=== PATIENT | male | born 1990 | race Caucasian/White ===

== ENCOUNTER 2022-05-24 08:33 | Inpatient (IN) | payer BC ==
[2022-05-24 09:16] LABS: #Basophils 0.1 thou/uL (0.0-0.2); #Eosinphils 0.3 thou/uL (0.0-0.7); #Monocytes 0.6 thou/uL (0.11-0.59); #Neutrophils 5.5 thou/uL (1.40-6.50); %Basophils 0.8 % (0.0-1.0); %Eosinophils 3.7 % (0.0-10.0); %Monocytes 6.9 % (0.0-10.0); %Neutrophils 64.7 % (42.0-75.0); Hemoglobin 14.7 g/dL (14.0-18.0); Mean Corpuscular HGB CONC 34.6 g/dL (32.0-36.0); Mean Corpuscular Hemoglobin 30.2 pg (27.0-31.0); Mean Corpuscular Volume 87.1 fl (78.0-98.0); Mean Platelet Volume 8.2 fL (7.4-10.4); Platelet Count 182 10x3/uL (130-400); RBC Distribution Width 12.2 % (11.5-14.5); Red Blood Cell (RBC) Count 4.86 mill/uL (4.70-6.10); White Blood Cell (WBC) Count 8.4 10x3/uL (4.8-10.8)
[2022-05-24 09:38] LABS: ALT (SGPT) 41 U/L (8-55); AST (SGOT) 25 U/L (5-34); Albumin 4.3 g/dL (3.5-5.0); Alkaline Phosphatase 50 U/L (40-110); Anion Gap 8 mmol/L (10-20); BUN (Urea Nitrogen) 33 mg/dL (8.9-20.6); Bilirubin, Total 0.9 mg/dL (0.2-1.2); Calc. Creatinine Clearance 0 mL/min (70-130); Carbon Dioxide 32 mmol/L (22-29); Chloride 105 mmol/L (98-107); Estimated GFR 34; Globulin 2.7 g/dL (2.4-3.5); Glucose 104 mg/dL (70-105); Potassium 3.6 mmol/L (3.5-5.1); Sodium 141 mmol/L (136-145)
[2022-05-24 09:44] LABS: Calcium 15.3 mg/dL (7.8-10.44)
[2022-05-24 10:01] LABS: Phosphorus 2.1 mg/dL (2.3-4.7)
[2022-05-24] MEDS ORDERED: Labetalol HCl 100 MG/20 ML VIAL ONE (10:28)
[2022-05-24 11:47] LABS: CKMB 1.7 ng/mL (0-6.6)
[2022-05-24] MEDS ORDERED: Labetalol HCl 100 MG/20 ML VIAL SLOW IVP PRN (12:03)
[2022-05-24] MEDS ORDERED: hydrALAZINE 20 MG/ML VIAL ONE (17:58)
[2022-05-24] MEDS ORDERED: hydrALAZINE 20 MG/ML VIAL SLOW IVP SCH (18:00)
[2022-05-24] MEDS: Sodium Chloride 0.9% 1,000 ML IV SCH ×2 (18:07→22:22)
[2022-05-24 18:46] LABS: Anion Gap 12 mmol/L (10-20); BUN (Urea Nitrogen) 30 mg/dL (8.9-20.6); Calc. Creatinine Clearance 0 mL/min (70-130); Carbon Dioxide 25 mmol/L (22-29); Chloride 104 mmol/L (98-107); Estimated GFR 37; Glucose 135 mg/dL (70-105); Potassium 3.2 mmol/L (3.5-5.1); Sodium 138 mmol/L (136-145)
[2022-05-24 19:09] LABS: CKMB 1.6 ng/mL (0-6.6)
[2022-05-24 19:12] VITALS: BMI 31.8
[2022-05-24 23:01] LABS: Albumin 3.9 g/dL (3.5-5.0); Anion Gap 15 mmol/L (10-20); BUN (Urea Nitrogen) 31 mg/dL (8.9-20.6); BUN/Creatinine Ratio 13.14; Calc. Creatinine Clearance 62 mL/min (70-130); Calcium 15.2 mg/dL (7.8-10.44); Carbon Dioxide 23 mmol/L (22-29); Chloride 106 mmol/L (98-107); Estimated GFR 36; Glucose 133 mg/dL (70-105); Phosphorus 3.5 mg/dL (2.3-4.7); Potassium 3.3 mmol/L (3.5-5.1); Sodium 141 mmol/L (136-145)
[2022-05-25] MEDS: Acetaminophen 325 MG TAB PO PRN ×5 (00:19→18:31)
[2022-05-25] MEDS: Sodium Chloride 0.9% 1,000 ML IV SCH ×3 (03:52→18:35)
[2022-05-25 05:54] LABS: #Eosinphils 0.3 thou/uL (0.0-0.7); #Lymphocytes 2.3 thou/uL (1.20-3.40); #Monocytes 0.6 thou/uL (0.11-0.59); %Basophils 0.5 % (0.0-1.0); %Eosinophils 3.9 % (0.0-10.0); %Lymphocytes 27.6 % (21.0-51.0); %Monocytes 7.3 % (0.0-10.0); %Neutrophils 60.6 % (42.0-75.0); Hemoglobin 12.9 g/dL (14.0-18.0); Mean Corpuscular HGB CONC 34.1 g/dL (32.0-36.0); Mean Corpuscular Hemoglobin 30.1 pg (27.0-31.0); Mean Corpuscular Volume 88.2 fl (78.0-98.0); Mean Platelet Volume 8.5 fL (7.4-10.4); Platelet Count 176 10x3/uL (130-400); RBC Distribution Width 12.3 % (11.5-14.5); Red Blood Cell (RBC) Count 4.28 mill/uL (4.70-6.10); White Blood Cell (WBC) Count 8.3 10x3/uL (4.8-10.8)
[2022-05-25 06:23] LABS: Anion Gap 11 mmol/L (10-20); BUN (Urea Nitrogen) 25 mg/dL (8.9-20.6); Calc. Creatinine Clearance 71 mL/min (70-130); Carbon Dioxide 25 mmol/L (22-29); Chloride 109 mmol/L (98-107); Estimated GFR 43; Glucose 88 mg/dL (70-105); Potassium 3.2 mmol/L (3.5-5.1); Sodium 142 mmol/L (136-145)
[2022-05-25 06:27] LABS: Calcium 13.6 mg/dL (7.8-10.44)
[2022-05-25 08:41] LABS: Magnesium 1.8 mg/dL (1.6-2.6)
[2022-05-25] MEDS ORDERED: Potassium Chloride 20 MEQ TAB PO SCH (08:45)
[2022-05-25] MEDS: hydrALAZINE 25 MG TAB PO SCH ×3 (08:52→21:22)
[2022-05-25] MEDS ORDERED: Zoledronic Acid 4 MG in Sodium Chloride 0.9% 100 ML IVPB SCH (12:45)
[2022-05-25] MEDS ORDERED: hydrALAZINE 25 MG TAB PO SCH (16:00)
[2022-05-26] MEDS: Sodium Chloride 0.9% 1,000 ML IV SCH ×4 (02:20→23:41)
[2022-05-26] MEDS: Acetaminophen 325 MG TAB PO PRN ×5 (05:07→23:41)
[2022-05-26 06:01] LABS: Anion Gap 9 mmol/L (10-20); BUN (Urea Nitrogen) 21 mg/dL (8.9-20.6); Calc. Creatinine Clearance 74 mL/min (70-130); Calcium 12.1 mg/dL (7.8-10.44); Carbon Dioxide 23 mmol/L (22-29); Chloride 113 mmol/L (98-107); Estimated GFR 45; Glucose 85 mg/dL (70-105); Potassium 3.5 mmol/L (3.5-5.1); Sodium 141 mmol/L (136-145)
[2022-05-26] MEDS: NIFEdipine XL 60 MG TAB PO SCH (09:00)
[2022-05-26] MEDS ORDERED: NIFEdipine XL 30 MG TAB PO SCH (09:00)
[2022-05-26] MEDS: hydrALAZINE 25 MG TAB PO SCH ×4 (09:01→21:11)
[2022-05-26] MEDS ORDERED: Metoprolol Tartrate 5 MG/5 ML VIAL IVP PRN (13:35)
[2022-05-26] MEDS ORDERED: Metoprolol Tartrate 25 MG TAB PO SCH (13:45)
[2022-05-26] MEDS ORDERED: Furosemide 40 MG/4 ML VIAL SLOW IVP SCH (14:45)
[2022-05-26] MEDS ORDERED: hydrALAZINE 25 MG TAB PO SCH (15:45)
[2022-05-26] MEDS: Metoprolol Tartrate 25 MG TAB PO SCH (21:14)
[2022-05-27 05:51] LABS: Anion Gap 10 mmol/L (10-20); BUN (Urea Nitrogen) 18 mg/dL (8.9-20.6); Calc. Creatinine Clearance 79 mL/min (70-130); Calcium 10.8 mg/dL (7.8-10.44); Carbon Dioxide 23 mmol/L (22-29); Chloride 110 mmol/L (98-107); Estimated GFR 49; Glucose 85 mg/dL (70-105); Potassium 3.2 mmol/L (3.5-5.1); Sodium 140 mmol/L (136-145)
[2022-05-27] MEDS: Acetaminophen 325 MG TAB PO PRN ×4 (05:54→20:18)
[2022-05-27] MEDS: Sodium Chloride 0.9% 1,000 ML IV SCH ×3 (05:58→22:04)
[2022-05-27] MEDS: NIFEdipine XL 60 MG TAB PO SCH (09:18)
[2022-05-27] MEDS: Metoprolol Tartrate 25 MG TAB PO SCH ×2 (09:18→20:18)
[2022-05-27] MEDS: hydrALAZINE 25 MG TAB PO SCH ×3 (09:19→20:18)
[2022-05-27] MEDS ORDERED: Potassium Chloride 20 MEQ TAB PO SCH (11:30)
[2022-05-27] MEDS ORDERED: traMADol HCl 50 MG TAB PO SCH (23:15)
[2022-05-28] MEDS: Acetaminophen 325 MG TAB PO PRN ×3 (03:27→12:14)
[2022-05-28 06:04] LABS: Anion Gap 9 mmol/L (10-20); BUN (Urea Nitrogen) 18 mg/dL (8.9-20.6); Calc. Creatinine Clearance 80 mL/min (70-130); Calcium 9.9 mg/dL (7.8-10.44); Carbon Dioxide 23 mmol/L (22-29); Chloride 113 mmol/L (98-107); Estimated GFR 50; Glucose 84 mg/dL (70-105); Potassium 3.6 mmol/L (3.5-5.1); Sodium 141 mmol/L (136-145)
[2022-05-28] MEDS: hydrALAZINE 25 MG TAB PO SCH ×2 (07:58→16:38)
[2022-05-28] MEDS: NIFEdipine XL 60 MG TAB PO SCH (07:59)
[2022-05-28] MEDS: Metoprolol Tartrate 25 MG TAB PO SCH (07:59)
[2022-05-28] MEDS: Sodium Chloride 0.9% 1,000 ML IV SCH (12:13)
[2022-05-28 15:57] VITALS: BP 133/78; TEMP 98.2
[2022-05-29 16:14] LABS: Metanephrine,Plasma 18.2 pg/mL (0.0-88.0); Normetanephrine,Pl 43.1 pg/mL (0.0-210.1)
== END 2022-05-28 16:45 | disposition home or self-care (01) | DRG 682 ==
LOC: ERS 08:33 → ERHOLD 11:55 → 2SW 18:58
PROVIDERS: ADMIT Internal Medicine; ATTEND Internal Medicine
DX: N17.9 Acute kidney failure, unspecified (principal); I21.A1 Myocardial infarction type 2; E83.52 Hypercalcemia; I16.0 Hypertensive urgency; Z20.822 Contact with and (suspected) exposure to COVID-19; E87.6 Hypokalemia; N18.30 Chronic kidney disease, stage 3 unspecified; I12.9 Hypertensive chronic kidney disease with stage 1 through stage 4 chronic kidney disease, or unspecified chronic kidney disease; M10.9 Gout, unspecified; E86.0 Dehydration; Z91.14 Patient's other noncompliance with medication regimen; Z79.899 Other long term (current) drug therapy
CPT/HCPCS: 36415; 36416; 71045; 71250; 74176; 76770; 80048; 80053; 82088; 82306; 82553; 83735; 83835; 83970; 84100; 84244; 84484; 84550; 85025; 93005; 93306; 96361; 96374; 96375; J0360; J3489; J3490; J7050; U0003; U0005

== ENCOUNTER 2022-07-08 07:37 | Outpatient (CLI) | payer BC ==
[2022-07-08] MEDS ORDERED: Iopamidol-370 76% 500 ML 1 ML ONE (09:18)
== END 2022-07-08 07:38 | disposition home or self-care (01) ==
LOC: BICCT 07:37
PROVIDERS: ATTEND Family Medicine
DX: R59.0 Localized enlarged lymph nodes (principal)
CPT/HCPCS: 71260; 82565; Q9967